=== PATIENT | female | born 2000 | race Caucasian/White ===

== ENCOUNTER 2025-06-24 18:35 | Inpatient (IN) | payer OTHER ==
[~2025-06-24] VITALS: Ht 180.3 cm; Wt 52.2 kg
[~2025-06-24 18:35] MED LIST: PEPCID AC20 MG PO; TRAM1TAB98 PO
[2025-06-24] MEDS ORDERED: PIPERACILLIN/TAZOBACTAM SODIUM 3.375 GM in 0.9 % SODIUM CHLORIDE 100 ML IV SCH (19:26)
[2025-06-24] MEDS ORDERED: FAMOtidine 10 MG/ML (4ML VIAL) IV ONE (19:30)
[2025-06-24 20:24] LABS: BASO % 0.5 % (0.1-1.2); EOS # 0.22 (0.04-0.54); EOS % 2.2 % (0.7-7.0); LYMPH # 2.23 (1.18-3.74); LYMPH % 22.3 % (19.3-53.1); MEAN PLATELET VOLUME 9.40 fl (9.4-12.4); MONO # 0.60 (0.24-0.82); MONO % 6.0 % (4.7-12.5); NEUT # 6.87 (1.56-6.13); NEUT % 68.8 % (34.0-71.1); RED CELL DISTRIBUTION WIDTH 20.5 % (11.6-14.4)
[2025-06-24 20:31] LABS: ERYTHROCYTE SEDIMENTATION RATE 20 mm/hr (0-20)
[2025-06-24] MEDS ORDERED: 0.9 % SODIUM CHLORIDE 1,000 ML IV SCH (21:00)
[2025-06-24] MEDS ORDERED: ONDANSETRON HCL 4 MG in 0.9 % SODIUM CHLORIDE 50 ML IV PRN (21:00)
[2025-06-24] MEDS ORDERED: ACETAMINOPHEN 325 MG TABLET PO PRN (21:00)
[2025-06-24 21:06] LABS: URINE APPEARANCE Cloudy; URINE BILIRRUBIN Negative (NEGATIVE); URINE BLOOD Negative; URINE COLOR Yellow; URINE GLUCOSE Negative (NEGATIVE); URINE KETONE Trace (NEGATIVE); URINE LEUKOCYTE Small; URINE NITRATE Negative; URINE PROTEIN Negative (NEGATIVE); URINE UROBILINOGEN 1.0 E.U./dl
[2025-06-24 21:09] LABS: URINE BACTERIA 3960.8 uL (0.0-1933); URINE EPITHELIAL CELLS 82.7 uL (0.0-38.8); URINE RBC 16.5 uL (0.0-20.8); URINE WBC 66.2 uL (0.0-23.2)
[2025-06-24 21:10] LABS: INR 1.09
[2025-06-24 21:14] LABS: TYPE CELLS SQUAMOUS; URINE CAST 1.31 uL (0.0-1.40)
[2025-06-24 21:18] LABS: ALT/SGPT 28 U/L (12-78); AST/SGOT 26 U/L (15-37); BILIRUBIN TOTAL 0.36 mg/dL (0.3-1.2); BUN CREA RATIO 13 (7.0-25.0); CREATININE SERUM 0.78 mg/dL (0.55-1.02); GFR 91.52; GLOBULINA 4.1 G/DL (2.4-3.5); GLUCOSE FASTING 81 mg/dL (65-100); OSMOLALITY SERUM 283 MOSM/KG (275-295)
[2025-06-24 21:19] LABS: HCG QUANTITATIVE < 1 mUI/mL (1-3)
[2025-06-24 21:46] VITALS: BP 113/74; O2SAT 100
[2025-06-25 01:09] VITALS: BP 96/65; O2SAT 100
[2025-06-25 08:20] VITALS: BP 102/65; O2SAT 100
[2025-06-25] MEDS ORDERED: 0.9 % SODIUM CHLORIDE 1,000 ML IV SCH (09:00)
[2025-06-25] MEDS ORDERED: DEXTROSE 5 %-0.45 % SOD CHLORD 1,000 ML IV SCH (11:00)
[2025-06-25] MEDS ORDERED: MEROPENEM 500 MG in 0.9 % SODIUM CHLORIDE 50 ML IV SCH (12:00)
[2025-06-25] MEDS ORDERED: DIATRIZOATE MEGLUMINE, SODIUM 30 ML BOTTLE PO NR (12:00)
[2025-06-25 16:00] VITALS: BP 100/65; O2SAT 100
[2025-06-25] MEDS ORDERED: VANCOMYCIN HCL 1,000 MG VIAL ONE ×3 (16:14→23:46)
[2025-06-25] MEDS ORDERED: VANCOMYCIN HCL 1,000 MG VIAL IV SCH (17:00)
[2025-06-26 00:51] VITALS: BP 105/71; O2SAT 100
[2025-06-26 08:29] VITALS: BP 93/55; O2SAT 97
[2025-06-26] MEDS ORDERED: ENOXAPARIN SODIUM 40 MG/0.4 ML SYRINGE SUBCUTANEO NR (13:30)
[2025-06-26] MEDS ORDERED: THIAMINE HCL 100 MG/ML 2 ML VIAL IV NR (14:00)
[2025-06-26] MEDS ORDERED: MULTIVIT INFUSN,ADULT 4,VIT K 10 ML VIAL IV NR (14:00)
[2025-06-26 15:32] LABS: BASO % 0.5 % (0.1-1.2); EOS # 0.15 (0.04-0.54); EOS % 2.4 % (0.7-7.0); LYMPH # 1.06 (1.18-3.74); LYMPH % 16.6 % (19.3-53.1); MEAN PLATELET VOLUME 9.80 fl (9.4-12.4); MONO # 0.35 (0.24-0.82); MONO % 5.5 % (4.7-12.5); NEUT # 4.76 (1.56-6.13); NEUT % 74.7 % (34.0-71.1); RED CELL DISTRIBUTION WIDTH 20.8 % (11.6-14.4)
[2025-06-26 15:35] LABS: INR 1.38
[2025-06-26 15:58] LABS: CHOL HDL RATIO 2.4 (0-5.0); HDL 27.0 mg/dl (40-60); LDL 32.0 mg/dl (0-130); VLDL 6.0 (0-39)
[2025-06-26] MEDS ORDERED: AA 2.36%/D6.8W/FAT/E-LYTES NO9 1,440 ML IV SCH (17:00)
[2025-06-26] MEDS ORDERED: AA 4.25%/CALCIUM/LYTES/DEX 10% 1,000 ML CENTRAL SCH (17:00)
[2025-06-26 18:08] VITALS: BP 100/62
[2025-06-27 00:05] VITALS: BP 91/62; O2SAT 98
[2025-06-27 06:43] LABS: BASO % 0.6 % (0.1-1.2); EOS # 0.25 (0.04-0.54); EOS % 2.8 % (0.7-7.0); LYMPH # 1.38 (1.18-3.74); LYMPH % 15.4 % (19.3-53.1); MEAN PLATELET VOLUME 9.80 fl (9.4-12.4); MONO # 0.73 (0.24-0.82); MONO % 8.1 % (4.7-12.5); NEUT # 6.53 (1.56-6.13); NEUT % 72.8 % (34.0-71.1); RED CELL DISTRIBUTION WIDTH 20.1 % (11.6-14.4)
[2025-06-27 07:05] LABS: ALT/SGPT 23.0 U/L (12-78); AST/SGOT 15.0 U/L (15-37); BILIRUBIN TOTAL 0.56 mg/dL (0.3-1.2); BUN CREA RATIO 8.0 (7.0-25.0); CREATININE SERUM 0.52 mg/dL (0.55-1.02); GFR 146.13; GLOBULINA 3.6 G/DL (2.4-3.5); GLUCOSE FASTING 90.0 mg/dL (65-100); OSMOLALITY SERUM 281.0 MOSM/KG (275-295)
[2025-06-27 08:00] VITALS: BP 87/53; O2SAT 97
[2025-06-27] MEDS ORDERED: SOD FERRIC GLUC COMPLX/SUCROSE 62.5 MG in 0.9 % SODIUM CHLORIDE 50 ML IV SCH (09:00)
[2025-06-27] MEDS ORDERED: MULTIVIT INFUSN,ADULT 4,VIT K 10 ML VIAL IV SCH (09:00)
[2025-06-27] MEDS ORDERED: ENOXAPARIN SODIUM 40 MG/0.4 ML SYRINGE SUBCUTANEO SCH (09:00)
[2025-06-27] MEDS ORDERED: Cyanocobalamin/Mecobalamin 1 TAB.SL SL SCH (09:00)
[2025-06-27] MEDS ORDERED: THIAMINE HCL 100 MG/ML 2 ML VIAL IV SCH (09:00)
[2025-06-27 10:00] VITALS: BP 94/60
[2025-06-27 15:10] VITALS: BP 105/70; O2SAT 95
[2025-06-28 01:42] VITALS: BP 100/68; O2SAT 100
[2025-06-28 08:00] VITALS: BP 94/61; O2SAT 94
[2025-06-28 16:00] VITALS: BP 103/70; O2SAT 94
[2025-06-29 01:11] VITALS: BP 100/62; O2SAT 100
[2025-06-29 09:22] VITALS: BP 98/64; O2SAT 95
[2025-06-29] MEDS ORDERED: DIATRIZOATE MEGLUMINE, SODIUM 30 ML BOTTLE PO STA (14:24)
[2025-06-29 16:19] VITALS: BP 102/68; O2SAT 98
[2025-06-30 01:04] VITALS: BP 108/64; O2SAT 100
[2025-06-30] MEDS ORDERED: DIATRIZOATE MEGLUMINE, SODIUM 30 ML BOTTLE PO NR (05:00)
[2025-06-30 08:00] VITALS: BP 112/75; O2SAT 97
[2025-06-30] MEDS ORDERED: SODIUM CHLORIDE 0.45 % 1,000 ML IV SCH (12:00)
[2025-06-30 16:00] VITALS: BP 94/64; O2SAT 100
[2025-07-01 00:41] VITALS: BP 109/72; O2SAT 100
[2025-07-01 08:44] VITALS: BP 98/66; O2SAT 98
== END 2025-07-01 17:23 | disposition home or self-care (01) | DRG 372 ==
LOC: ER 18:35 → SURH 20:53 → EDBD 20:53 → SURH 07-01 17:23 → EDBD 07-01 17:23
PROVIDERS: General Practice; Internal Medicine Geriatric Medicine; ADMIT Surgery; ATTEND Surgery
PROC: BW21YZZ Computerized Tomography (CT Scan) of Abdomen and Pelvis using Other Contrast (ICD-10-PCS; principal; 2025-06-25)
PROC: 02HV33Z Insertion of Infusion Device into Superior Vena Cava, Percutaneous Approach (ICD-10-PCS; 2025-06-28)
PROC: BW21YZZ Computerized Tomography (CT Scan) of Abdomen and Pelvis using Other Contrast (ICD-10-PCS; 2025-06-30)
DX: K65.1 Peritoneal abscess (principal); K50.90 Crohn's disease, unspecified, without complications; T81.9XXA Unspecified complication of procedure, initial encounter; D64.9 Anemia, unspecified